=== PATIENT | female | born 1975 | race American Indian/Alaskan Native ===

== ENCOUNTER 2021-08-09 00:03 | Emergency (ER) | payer MEDICAID ==
[~2021-08-09] VITALS: Ht 170.2 cm; Wt 77.1 kg
[~2021-08-09 00:03] MED LIST: LEVO100T81
[2021-08-09] MEDS ORDERED: LORazepam 2MG/ML-1ML VIAL IM ONE (04:00)
[2021-08-09] MEDS ORDERED: LORA-655 PO (04:10)
[2021-08-09 04:35] VITALS: BP 127/75
== END 2021-08-09 05:30 | disposition home or self-care (01) ==
LOC: EDBD 00:03 → ER 00:03
DX: R53.1 Weakness (principal); Z88.6 Allergy status to analgesic agent; Z98.51 Tubal ligation status
CPT/HCPCS: 96372; 99283; J2060